=== PATIENT | male | born 1970 | race Caucasian/White ===

== ENCOUNTER 2017-12-29 17:30 | Emergency (ER) | payer BC ==
[2017-12-29 17:43] VITALS: BP 146/89
[2017-12-29] MEDS ORDERED: DOXYcycline CAP(*) 100 MG PO ONE (18:02)
--- NOTE | 2017-12-29 18:03 | UC ---
Skin Complaint HPI - HPI Summary HPI Summary: States he noticed this yesterday a bump in the back of his left knee that started itching today and has been scratching it noting an induration and central scabbing. States he has been to the beach in [place] this past week and a week ago he went hiking. He states those are the two possibilities of insect bites that he can recall. Denies fever, and states induration has become worse. - History of Current Complaint Chief Complaint: [employer] Time Seen by Provider: 12/29/17 17:35 Stated Complaint: BUG BITE Hx Obtained From: Patient Onset/Duration: Sudden Onset, Lasting Days Skin Exposure Onset/Duration: Weeks Ago Timing: Constant Onset Severity: Mild Current Severity: Mild Pain Intensity: 2 Location: Other - left leg - Allergy/Home Medications Allergies/Adverse Reactions: Allergies Allergy/AdvReac Type Severity Reaction Status Date / Time ultaviolet light Allergy Intermediate See Comment Uncoded 06/20/16 07:38 Home Medications: Home Medications Aspirin 81 mg CHEW TAB* 81 mg PO DAILY 12/29/17 [History Confirmed 12/29/17] Review of Systems All Other Systems Reviewed And Are Negative: Yes PMH/Surg Hx/FS Hx/Imm Hx Previously Healthy: Yes Cardiovascular History: Hypertension - Surgical History Surgical History: None - Social History Alcohol Use: Occasionally Substance Use Type: None Smoking Status (MU): Never Smoked Tobacco Physical Exam Triage Information Reviewed: Yes Appearance: Well-Appearing, No Pain Distress, Well-Nourished Vital Signs: Initial Vital Signs Temp 97.4 F 12/29/17 17:40 Pulse 84 12/29/17 17:40 Resp 17 12/29/17 17:40 BP 146/89 12/29/17 17:40 Pulse Ox 98 12/29/17 17:40 Vital Signs Reviewed: Yes Eyes: Positive: Conjunctiva Clear ENT: Positive: Hearing grossly normal Neck: Positive: Supple Respiratory: Positive: No respiratory distress Cardiovascular: Positive: Pulses Normal, Brisk Capillary Refill Skin Exam: Other - indurated area with erythema and central scab on posterior aspect proximal left calf approx 2x1.5cm in dimension Course/Dx - Course Course Of Treatment: Start doxycycline 100mg po bid for 7 days, local hygiene, follow with PCP in 2 weeks. - Diagnoses Provider Diagnoses: cellulitis. Insect Bite Discharge - Sign-Out/Discharge Documenting (check all that apply): Discharge/Admit/Transfer - Discharge Plan Condition: Good Disposition: HOME Prescriptions: DOXYcycline CAP(*) [DOXYcycline 100MG CAP(*)] 100 mg PO BID 7 Days #14 cap Patient Education Materials: Doxycycline (By mouth), Insect Bite or Sting (ED) Referrals: Galdino Mcallister MD [Primary Care Provider] - - Billing Disposition and Condition Condition: GOOD Disposition: HOME
== END 2017-12-29 18:10 | disposition home or self-care (01) ==
LOC: UCEAST 17:30
DX: S80.262A Insect bite (nonvenomous), left knee, initial encounter (principal); L03.116 Cellulitis of left lower limb; W57.XXXA Bitten or stung by nonvenomous insect and other nonvenomous arthropods, initial encounter; Y93.9 Activity, unspecified; Y92.9 Unspecified place or not applicable; I10 Essential (primary) hypertension
CPT/HCPCS: 99212; A9270-GY; G0463